=== PATIENT | female | born 1950 | race Caucasian/White ===

== ENCOUNTER 2019-10-26 12:29 | Inpatient (IN) ==
[2019-10-26] MEDS ORDERED: ONDANSETRON 4 MG/2 ML VIAL IV STA ×2 (13:34→15:30)
[2019-10-26] MEDS ORDERED: SODIUM CHLORIDE 0.9% 1,000 ML IV STA ×2 (13:34→15:30)
[2019-10-26 14:07] LABS: Basophils % 0.1 % (0.0-0.8); Hematocrit 38.2 VOL% (35.7-47.0); Hemoglobin 13.1 GM/DL (12.0-16.0); Immature Granulocytes % 0.7 %; Immature Granulocytes Absolute 0.06 #; Lymphocytes # 0.3 10*3/uL (1.4-4.0); Lymphocytes % 3.3 % (21.3-54.2); Mean Corpuscular HGB Conc 34.3 GM/DL (32-36); Mean Corpuscular Volume 87.6 FL (87-102); Mean Platelet Volume 11.8 FL (9.6-12.0); Monocytes % 4.2 % (1.7-12.7); Neutrophils % 91.7 % (38.7-73.9); Platelet Count 181 T/CUMM (130-400); Red Blood Count 4.36 MC/CUMM (3.8-5.5); Red Cell Distribution Width 12.2 % (9.3-17.3); White Blood Count 8.1 T/CUMM (4-12)
[2019-10-26 14:16] LABS: Albumin 3.9 G/DL (3.4-5.0); Bilirubin,Total 0.6 MG/DL (0.2-1.0); Calcium 8.5 MG/DL (8.5-10.1); Osmolality,Calculated 277.1 MOS/KG (273-304)
[2019-10-26 14:27] LABS: Band Neutrophils 1 % (0-10); Eosinophils 1 % (0-10); Lymphocytes 2 % (20-55); Platelet Estimate Adequate; Segmented Neutrophils 90 % (50-85); Total Cells Counted 100
[2019-10-26 15:03] LABS: Apearance,Urine CLEAR (Clear); Bilirubin,Urine Negative (Negative); Blood, Urine Negative (Negative); Glucose,Urine (UA) Negative (Negative); Ketones,Urine 5 mg/dL (Negative); Mucus,Urine Occasional /LPF (Occasional); Nitrite,Urine Negative (Negative); Protein,Urine Negative; RBC,Urine 1 /HPF (0-4); Squamous Epithelial Cell,Urine Occasional /HPF (0-10); Urine Color Yellow (Yellow); Urine Specific Gravity 1.021 (1.001-1.035); WBC,Urine <1 /HPF (0-6)
[2019-10-26] MEDS ORDERED: ACETAMINOPHEN 500 MG TABLET PO STA (15:08)
[2019-10-26] MEDS ORDERED: ONDANSETRON 4 MG/2 ML VIAL IV PRN (16:18)
[2019-10-26] MEDS ORDERED: ACETAMINOPHEN 650 MG SUPP RECTAL PRN (16:21)
[2019-10-26] MEDS ORDERED: DEXTROSE 10% 25 GM/250 ML BAG IV PRN (16:34)
[2019-10-26] MEDS ORDERED: GLUCAGON 1 MG VIAL IM PRN (16:34)
[2019-10-26] MEDS: ENOXAPARIN 30 MG/0.3 ML SYRINGE SUBCUT SCH (17:02)
[2019-10-26] MEDS: FAMOTIDINE 20 MG/2 ML VIAL IV SCH (17:02)
[2019-10-26] MEDS: SODIUM CHLORIDE 0.9% 1,000 ML IV SCH (17:23)
[2019-10-26] MEDS: INSULIN REGULAR 100 UNIT/ML SUBCUT SCH (19:05)
[2019-10-26] MEDS: PROMETHAZINE 25 MG/1 ML VIAL IM PRN (20:00)
[2019-10-27] MEDS: INSULIN REGULAR 100 UNIT/ML SUBCUT SCH ×4 (00:43→18:24)
[2019-10-27] MEDS: PROMETHAZINE 25 MG/1 ML VIAL IM PRN ×3 (04:25→17:13)
[2019-10-27] MEDS: FAMOTIDINE 20 MG/2 ML VIAL IV SCH ×2 (04:25→17:02)
[2019-10-27 04:38] LABS: Basophils % 0.2 % (0.0-0.8); Hematocrit 34.8 VOL% (35.7-47.0); Hemoglobin 11.5 GM/DL (12.0-16.0); Immature Granulocytes % 0.6 %; Immature Granulocytes Absolute 0.03 #; Lymphocytes # 0.6 10*3/uL (1.4-4.0); Lymphocytes % 11.2 % (21.3-54.2); Mean Corpuscular Volume 91.3 FL (87-102); Mean Platelet Volume 11.4 FL (9.6-12.0); Monocytes % 2.4 % (1.7-12.7); Neutrophils % 85.6 % (38.7-73.9); Platelet Count 145 T/CUMM (130-400); Red Blood Count 3.81 MC/CUMM (3.8-5.5); Red Cell Distribution Width 12.3 % (9.3-17.3)
[2019-10-27 04:47] LABS: Calcium 7.6 MG/DL (8.5-10.1); Osmolality,Calculated 282.4 MOS/KG (273-304)
[2019-10-27] MEDS ORDERED: POTASSIUM CHLORIDE 20 MEQ TABLET PO ONE (07:21)
[2019-10-27] MEDS: SODIUM CHLORIDE 0.9% 1,000 ML IV SCH (07:31)
[2019-10-27] MEDS: metroNIDAZOLE INJ 500 MG in PREMIX 1 EACH IV SCH ×2 (09:53→17:13)
[2019-10-27] MEDS: LOSARTAN 50 MG TABLET PO SCH (09:56)
[2019-10-27] MEDS: FLUoxetine 20 MG CAPSULE PO SCH (09:56)
[2019-10-27] MEDS: ATENOLOL 50 MG TABLET PO SCH (10:07)
[2019-10-27] MEDS: ACETAMINOPHEN 325 MG TABLET PO PRN ×2 (11:35→22:17)
[2019-10-27] MEDS: CIPROFLOXACIN INJ 400 MG in PREMIX 1 EACH IV SCH ×2 (11:37→22:25)
[2019-10-27] MEDS ORDERED: ACETAMINOPHEN 325 MG TABLET PO SCH (15:00)
[2019-10-27] MEDS: ENOXAPARIN 30 MG/0.3 ML SYRINGE SUBCUT SCH (17:02)
[2019-10-28] MEDS: INSULIN REGULAR 100 UNIT/ML SUBCUT SCH ×3 (01:37→12:10)
[2019-10-28] MEDS: metroNIDAZOLE INJ 500 MG in PREMIX 1 EACH IV SCH ×3 (01:43→17:05)
[2019-10-28] MEDS: SODIUM CHLORIDE 0.9% 1,000 ML IV SCH (04:48)
[2019-10-28] MEDS: FAMOTIDINE 20 MG/2 ML VIAL IV SCH ×2 (05:22→17:06)
[2019-10-28 06:07] LABS: Basophils % 0.3 % (0.0-0.8); Eosinophils % 0.6 % (0.00-10.9); Hematocrit 31.3 VOL% (35.7-47.0); Hemoglobin 10.4 GM/DL (12.0-16.0); Immature Granulocytes % 0.6 %; Immature Granulocytes Absolute 0.02 #; Lymphocytes # 0.8 10*3/uL (1.4-4.0); Lymphocytes % 21.6 % (21.3-54.2); Mean Corpuscular HGB Conc 33.2 GM/DL (32-36); Mean Corpuscular Volume 89.4 FL (87-102); Mean Platelet Volume 11.6 FL (9.6-12.0); Monocytes % 12.6 % (1.7-12.7); Neutrophils % 64.3 % (38.7-73.9); Platelet Count 106 T/CUMM (130-400); Red Cell Distribution Width 12.5 % (9.3-17.3); White Blood Count 3.6 T/CUMM (4-12)
[2019-10-28 06:21] LABS: Calcium 7.7 MG/DL (8.5-10.1); Osmolality,Calculated 282.1 MOS/KG (273-304)
[2019-10-28] MEDS: FLUoxetine 20 MG CAPSULE PO SCH (08:39)
[2019-10-28] MEDS: LOSARTAN 50 MG TABLET PO SCH (08:39)
[2019-10-28] MEDS: ATENOLOL 50 MG TABLET PO SCH (08:39)
[2019-10-28] MEDS: CIPROFLOXACIN INJ 400 MG in PREMIX 1 EACH IV SCH (10:19)
[2019-10-28] MEDS: POTASSIUM CHLORIDE 20 MEQ TABLET PO PRN ×4 (10:19→15:48)
[2019-10-28] MEDS ORDERED: LOSARTAN 50 MG TABLET PO SCH (11:30)
[2019-10-28] MEDS: PROMETHAZINE 25 MG/1 ML VIAL IM PRN (13:27)
[2019-10-28] MEDS: ACETAMINOPHEN 325 MG TABLET PO PRN (15:48)
[2019-10-28 15:49] VITALS: BP 126/56
[2019-10-28] MEDS ORDERED: ENOXAPARIN 40 MG/0.4 ML SYRINGE SUBCUT SCH (21:00)
== END 2019-10-28 17:25 | disposition home or self-care (01) | DRG 392 ==
LOC: N.EDINP 12:29 → N.ED 12:29 → SUATTDRO 16:18 → N.2W 16:45 → N.2E 10-27 15:13
PROVIDERS: ADMIT Internal Medicine Cardiovascular Disease; ATTEND Internal Medicine